=== PATIENT | male | born 1985 | race Caucasian/White ===

== ENCOUNTER 2022-09-04 11:34 | Emergency (ER) | payer MEDICAID ==
[~2022-09-04] VITALS: Ht 172.7 cm; Wt 102.1 kg
== END 2022-09-04 15:25 | disposition home or self-care (01) ==
LOC: ED 11:34
DX: U07.1 COVID-19 (principal)
CPT/HCPCS: 36415; 71045; 80048; 85025; 87502; 94664; 99283-25; A9270; U0003

== ENCOUNTER 2022-09-07 11:11 | Emergency (ER) | payer MEDICAID ==
[~2022-09-07] VITALS: Ht 172.7 cm; Wt 102.1 kg
--- OUTSIDE RECORDS SUMMARY | 2022-09-07 11:13 | XMS ---
PreManage Notification: ANUM GUZMAN Security [employer] Events No recent Security Events currently on file CRITERIA MET - [facility] - 2 Visits in 30 Days CARE PROVIDERS There are no care providers on record at this time. Lydia has no Care Guidelines for this patient. [facility]12 MO.) [facility] NOTE: Visits indicate total known visits. ED/C VISIT TRACKING (12 MO.) 09/07/2022 11:12 [facility] [place] TYPE: Emergency COMPLAINT: - MEDICATION REACTION 09/04/2022 11:35 [facility] [place] TYPE: Emergency COMPLAINT: - COLD SYMPTOMS DIAGNOSES: - Cough, unspecified - COVID-19 INPATIENT VISIT TRACKING (12 MO.) No inpatient visits to display in this time frame [email or web address]
[2022-09-07] MEDS ORDERED: KETOCONAZOLE10 GM MISC (11:41)
[2022-09-07] MEDS ORDERED: VISTARIL25 MG PO (11:41)
== END 2022-09-07 11:55 | disposition home or self-care (01) ==
LOC: ED 11:11
DX: U07.1 COVID-19 (principal); T37.5X5A Adverse effect of antiviral drugs, initial encounter; Z59.00 Homelessness unspecified
CPT/HCPCS: 99283